=== PATIENT | female | born 1955 | race Caucasian/White ===

== ENCOUNTER → 2016-12-20 | Outpatient (CLI) | payer MEDICARE, MEDICAID ==
[~2016-12-20] MED LIST: CEPHALEXIN500 M1 PO; HUMALOG100 U/ML SC; HYDRODIURIL25 MG PO; LANTUS100 U/ML SC; LASIX 40MG TABL40 MG PO; LEXAPRO10 MG PO; MICARDIS80 MG PO; NEURONTIN100 MG PO; NORVASC 10MG10 MG PO; PRAVACHOL 40MG40 MG PO; PREDNISONE20 MG PO; PROVENTIL0.09 MG/A1 IH; PULMICORT180 MCG/Ac IH
== END ==
LOC: COL.RAD 08:14
DX: K21.9 Gastro-esophageal reflux disease without esophagitis (principal); R93.3 Abnormal findings on diagnostic imaging of other parts of digestive tract
CPT/HCPCS: A9541

== ENCOUNTER → 2017-04-25 | Outpatient (CLI) | payer MEDICARE | LOC: COL.PUL 08:42 | DX: R05 Cough (principal) | CPT/HCPCS: J7674 ==

== ENCOUNTER → 2017-05-02 | Outpatient (CLI) | payer MEDICARE | LOC: MC.RAD 10:32 | DX: Z12.31 Encounter for screening mammogram for malignant neoplasm of breast (principal) ==

== ENCOUNTER → 2018-07-12 | Outpatient (CLI) | payer MEDICARE | LOC: COL.RAD 09:56 | DX: I77.810 Thoracic aortic ectasia (principal); K22.8 Other specified diseases of esophagus ==

== ENCOUNTER → 2021-06-08 | Outpatient (CLI) | payer MEDICARE | LOC: MC.RAD 09:13 | DX: Z12.31 Encounter for screening mammogram for malignant neoplasm of breast (principal); R92.1 Mammographic calcification found on diagnostic imaging of breast ==

== ENCOUNTER → 2021-06-22 | Outpatient (CLI) | payer MEDICARE | LOC: MC.RAD 08:00 | DX: R92.1 Mammographic calcification found on diagnostic imaging of breast (principal) ==